=== PATIENT | male | born 1945 | race Caucasian/White ===

== ENCOUNTER 2017-03-02 11:17 | Inpatient (IN) | payer MEDICARE, OTHER ==
[2017-03-02] VITALS (10 sets, daily range): BP systolic 138–166; BP diastolic 51–78; PULSE 60–75; RESP 14–20; O2SAT 94–99
[~2017-03-02] VITALS: Ht 170.2 cm; Wt 119.6 kg
--- NOTE | 2017-03-02 11:31 | ED.REPORT ---
HPI-Dyspnea / Wheezing Date of Service Mar 02, 2017 ED Provider: Dr. Sanders Pt is a 71 year old extremely poor historian with a hx of systolic heart failure , chronic bronchitis, unknown cardiac valve dysfunction presenting to the ED complaining of SOB onset 1 week ago. Associated symptoms include "gurgling". He states that he is usually able to cough and resolve the SOB, but this time he has been unable to. Patient reports feeling he is unable to clear the sputum out of his lungs. Pt had a CT 4 days ago at [facility], but they have not yet gotten results. Nursing Notes Stated Complaint: SOB,HARD TIME WALKING,LOTS OF GURGLING Chief Complaint: Respiratory Distress Nursing Notes Reviewed: Yes Allergies: Coded Allergies: cephalexin (Verified Allergy, Severe, decreased white count, 03/02/17) Contrast Media (Verified Allergy, Intermediate, hives, 03/02/17) shellfish derived (Verified Allergy, Intermediate, hives, 03/02/17) General Time Seen by MD: 11:30 Chief Complaint Shortness of breath Hx Obtained From: Patient, Spouse Arrived By: Walk-in Sudden in Onset?: No Onset Occurred: 1 week ago Symptom Duration: Since onset Severity: Current: No pain currently Severity: Maximum: No pain Recent Healthcare: No recent doctor visit, No recent hospitalization Similar Sx Previous: Yes Past Medical History Past Medical History Notes: CT from [facility] 4 days ago IMPRESSION: 1. Findings consistent with airway disease/bronchitis, rachael notable in the left lower lobe with some mucoid impaction. Left basilar hypoinflation with probable atelectasis. Can not exclude small left basilar infiltrate. Mild lingular atelectasis or scarring. 2. No suspicious pulmonary nodule or pathologic adenopathy. 3. Stable mildly prominent proximal descending aorta 3.2 cm in diameter. Dystrophic calcifications of aortic valve. Past Medical History 1. Pseudomonas aeruginosa tracheobronchitis 2. Chronic bronchitis/possible COPD 3. GERD 4. Obesity 5. Obstructive sleep apnea 6. Hyperlipidemia 7. Rheumatoid arthritis 8. Osteoarthritis 9. Benign prostatic hypertrophy 10. Chronic kidney disease stage G3b/A3, moderately decreased glomerular filtration rate between 30-44 mL/min/1.73 square meter and albuminuria creatinine ratio greater than 300 mg/g 11. History of systolic CHF 12. HTN 13. Heart valve disease 14. Methicillin resistant Staphylococcus aureus colonization Ambulatory Status Independent Review of Systems Respiratory: Reports: Shortness of breath Cardiovascular: Denies: Chest pain Complete sys rev & neg: except as marked. GI: Denies: Vomiting Physical Exam Initial Vital Signs Vital Signs (First) Date Time Temp Pulse Resp B/P Pulse Ox O2 Delivery O2 Flow Rate FiO2 03/02/17 11:29 36.6 66 17 138/75 95 Room Air Initial VS: Reviewed Head / Eyes: Atraumatic, Normocephalic, PERRL ENT: Mucous membranes moist, Conjunctiva normal, No scleral icterus Abdomen / GI: Soft, Non-tender Neurologic: Alert, Oriented, Nonfocal Psychiatric: Mood/affect normal, Behavior normal, Normal thought content General/Constitutional: Awake, Alert, Well appearing Neck: No JVD Respiratory / Chest: Atraumatic Wheezing / Retractions: Positive: Wheezing expiratory Rales / Rhonchi: Positive: Rhonchi diffuse (Coarse) Cardiovascular: Heart rate NL, Regular rhythm, Heart sounds NL, Peripheral circulation NL Lower Extremity / Pelvis / MS: Atraumatic, Neurologic intact, Vascular intact +1 LE edema Skin: Atraumatic, Color NL, No rash, Warm, Dry, Intact Interpretation & Diagnostics Lab Results Interpretation Result Diagram: 03/02/17 1130 03/02/17 1130 Test 03/02/17 11:30 03/02/17 13:51 White Blood Count 13.8th/mm3 (3.8-10.1) Red Blood Count 4.52mil/mm3 (4.40-5.80) Hemoglobin 14.0g/dL (13.8-17.2) Hematocrit 43.2% (41.0-50.0) Mean Corpuscular Volume 95.6fL (81-100) Mean Corpuscular Hemoglobin 31.0pg (27.0-35.0) Mean Corpuscular Hemoglobin Concent 32.4% (32.0-37.0) Red Cell Distribution Width 15.5% (12.3-15.4) Platelet Count 116bil/L (150-400) Neutrophils (%) (Auto) 82.5% (40-74) Lymphocytes (%) (Auto) 10.5% (14-46) Monocytes (%) (Auto) 4.9% (4-12) Eosinophils (%) (Auto) 0.7% (0-5) Basophils (%) (Auto) 0.1% (0-3) Prothrombin Time 10.1sec (8.1-12.5) Prothromb Time International Ratio 0.95ratio Sodium Level 141mEq/L (134-144) Potassium Level 4.5mEq/L (3.5-5.2) Chloride Level 104mEq/L (97-108) Carbon Dioxide Level 23mmol/L (18-29) Blood Urea Nitrogen 45mg/dL (8-27) Creatinine 1.23mg/dL (0.76-1.27) Estimat Glomerular Filtration Rate 61mL/min (>59) Glucose Level 163mg/dL (60-99) Lactic Acid Level 1.6mmol/L (0.4-2.0) Calcium Level 9.5mg/dL (8.5-10.1) Magnesium Level 1.8mg/dL (1.6-2.6) Total Bilirubin 0.6mg/dL (0.0-1.2) Aspartate Amino Transf (AST/SGOT) 21U/L (0-50) Alanine Aminotransferase (ALT/SGPT) 21U/L (0-44) Alkaline Phosphatase 88U/L (25-160) Troponin T 0.010ug/L (0.0-0.011) Pro-B-Type Natriuretic Peptide 244.7pg/mL (0-376) Total Protein 5.9g/dL (6.4-8.4) Albumin 3.6g/dL (3.4-5.0) Procalcitonin 0.06ng/mL (0.00-0.08) Hold Joseph Top Tube Received (Received) Hold Urine Received (Received) ECG Interpretation ECG Interpretation: LAFB and RBBB. Left ventricular hypertrophy. Time: 11:32 Interpreted by: ED physician Normal ECG Interpretation: Normal rate (65), Normal sinus rhythm X-Ray Chest Interpretation Chest Xray Interpretation: IMPRESSION: Moderate atypical pneumonia. Dictated by: Stephanie Beavers M.D. on 03/02/2017 at 12:58 View: AP & lat Interpretation / Wet Read by: Interpret - Radiologist Re-Eval/Medical Decision Med Decision/Clinical Course Suspect either chronic bronchitis exacerbation or pneumonia, patient received IV steroids and a total of 2 albuterol nebulizers and 2 DuoNeb's in the ER with little relief. His vital signs are stable overall however given his leukocytosis, presence of atypical pneumonia on x-ray and minimal clinical improvement and the patient was outside of the area suspect that he will need hospitalization for aggressive nebulizer therapy, IV antibiotics and steroids for significant clinical improvement. We will plan to admit. Re-Evaluation/Progress #1: Time of Eval: 12:33 Patient Status: Condition improved Re-Evaluation/Progress Note: Discussed plan for x ray. Pt understands and agrees. Re-Evaluation/Progress #2: Time of Eval: 13:11 Patient Status: Condition improved Re-Evaluation/Progress Note: Discussed plan for admission. Pt understands and agrees with plan. Consultation : Referral / Consult Name: Gaetano Gordon MD Consulted With: Hospitalist Call Returned at: 14:03 Clinical Courier: Will see patient, Agrees with plan, Accepts admit Counseled Regarding: Diagnosis, Lab results, Need for follow-up, When/why to return to ED Discharge & Departure Impression: Primary Impression: Pneumonia Disposition: ADMITTED TO HOSPITAL Discharge Condition All VS Reviewed: Yes Condition: Improved Leilani Attestation Portions of this note were transcribed by Janice Mullins. I, Dr. Sanders personally performed the history, physical exam and medical decision-making; I reviewed and confirmed the accuracy of the information in the transcribed note. Signed by: Leilani Johnson, 03/02/2017 at 1408. Isiah Sanders DO Mar 02, 2017 11:31 JANICE MULLINS Mar 02, 2017 11:44
[2017-03-02] MEDS ORDERED: 0.9% Sodium Chloride 1,000 ML IV ONE (11:43)
[2017-03-02] MEDS ORDERED: MethylprednisoLONE Sodium Succinate 62.5 mg/mL 2 mL Inj IVPUSH ONE (11:45)
[2017-03-02] MEDS ORDERED: Albuterol 2.5 mg/3 mL Inhalation Solution NEB ONE (11:45)
[2017-03-02 12:04] LABS: BASOPHILS % (AUTO) 0.1 % (0-3); EOSINOPHILS % (AUTO) 0.7 % (0-5); MONOCYTES % (AUTO) 4.9 % (4-12); Mean Corpuscular Volume 95.6 fL (81-100); NEUTROPHILS % (AUTO) 82.5 % (40-74); Platelet Count 116 bil/L (150-400)
[2017-03-02 12:24] LABS: TROPONIN T 0.01 ug/L (0.0-0.011)
[2017-03-02 12:35] LABS: Magnesium 1.8 mg/dL (1.6-2.6)
[2017-03-02 12:42] LABS: INR 0.95 ratio
--- NOTE | 2017-03-02 12:59 | DRSVH ---
PROCEDURE: X-RAY CHEST, TWO VIEWS ([id number]) INDICATIONS: Shortness of breath. History of pneumonia. TECHNIQUE: 2 views of the chest were acquired. COMPARISON: None. FINDINGS: Surgical changes and devices: None. Lungs and pleura: No pleural effusions or pneumothorax. Moderate interstitial pulmonary opacity is p resent. Mediastinum: Mediastinal contours are normal. Heart size is normal. Bones and chest wall: No suspicious bony abnormalities. Soft tissues appear unremarkable. IMPRESSION: Moderate atypical pneumonia. Dictated by: Stephanie Beavers M.D. on 03/02/2017 at 12:58 Approved by: Stephanie Beavers M.D. on 03/02/2017 at 12:58
[2017-03-02] MEDS ORDERED: Albuterol-Ipratropium 3 mL Inhalation Solution NEB ONE (13:15)
[2017-03-02] MEDS ORDERED: levoFLOXacin Inj 750 MG in IV Premix 1 EACH IV ONE (13:25)
[2017-03-02] MEDS ORDERED: Ondansetron 2 mg/mL 2 mL Inj IVPUSH PRN (14:50)
[2017-03-02] MEDS ORDERED: Polyethylene Glycol (PEG) 17 Gm Powder PO PRN (14:50)
[2017-03-02] MEDS ORDERED: Alum-Mag Hydrox-Simeth 30 mL Suspension PO PRN (14:50)
[2017-03-02 15:16] LABS: APPEARANCE,URINE CLEAR (CLEAR,HAZY); COLOR,URINE YELLOW (YELLOW); OCCULT BLOOD,URINE NEGATIVE (NEGATIVE); UROBILINOGEN,URINE NORMAL (NORMAL)
[2017-03-02] MEDS ORDERED: Furosemide 10 mg/mL 4 mL Inj IVPUSH ONE (16:45)
[2017-03-02] MEDS: Albuterol-Ipratropium 3 mL Inhalation Solution NEB SCH ×2 (16:50→19:52)
[2017-03-02] MEDS ORDERED: PRE10 PO (18:02)
[2017-03-02] MEDS ORDERED: DOXA4TAB3 PO (18:02)
[2017-03-02] MEDS ORDERED: COLC0.6T55 PO (18:02)
[2017-03-02] MEDS ORDERED: TRAZ-115 PO (18:02)
[2017-03-02] MEDS ORDERED: ALLO300T2 PO (18:02)
[2017-03-02] MEDS ORDERED: FURO40TA4 PO (18:02)
[2017-03-02] MEDS ORDERED: SYMINH INHALATION (18:02)
[2017-03-02] MEDS ORDERED: TIOT18CA3 INHALATION (18:02)
[2017-03-02] MEDS ORDERED: OMEP20CA11 PO (18:02)
[2017-03-02] MEDS ORDERED: GUAI600T86 PO (18:02)
[2017-03-02] MEDS ORDERED: OXYC5TAB72 PO (18:02)
[2017-03-02] MEDS ORDERED: BACL10TA PO (18:02)
[2017-03-02] MEDS ORDERED: ALBU8.5H2 INHALATION (18:02)
[2017-03-02] MEDS ORDERED: ATOR40TA69 PO (18:02)
[2017-03-02] MEDS ORDERED: CARV6.252 PO (18:02)
[2017-03-02] MEDS ORDERED: NITR0.4T6 SL (18:02)
[2017-03-02] MEDS ORDERED: Furosemide 10 mg/mL 4 mL Inj IVPUSH SCH (20:30)
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
[2017-03-03] VITALS (11 sets, daily range): BP systolic 112–146; BP diastolic 70–79; PULSE 68–91; RESP 16–20; O2SAT 94–95
[2017-03-03] MEDS ORDERED: Albuterol 2.5 mg/3 mL Inhalation Solution NEB PRN (00:30)
[2017-03-03] MEDS ORDERED: guaiFENesin 600 mg ER12 Tablet PO PRN (00:30)
[2017-03-03] MEDS: Albuterol-Ipratropium 3 mL Inhalation Solution NEB SCH ×4 (04:50→20:06)
[2017-03-03] MEDS: Pantoprazole 40 mg ER24 Tablet PO SCH (06:11)
[2017-03-03 06:38] LABS: BASOPHILS % (AUTO) 0.1 % (0-3); EOSINOPHILS % (AUTO) 0.2 % (0-5); MONOCYTES % (AUTO) 1.6 % (4-12); Mean Corpuscular Hemoglobin 31.4 pg (27.0-35.0); Mean Corpuscular Volume 92.7 fL (81-100); NEUTROPHILS % (AUTO) 92.5 % (40-74); Platelet Count 119 bil/L (150-400)
[2017-03-03 07:05] LABS: Magnesium 1.8 mg/dL (1.6-2.6)
[2017-03-03] MEDS ORDERED: Furosemide 10 mg/mL 4 mL Inj IVPUSH SCH (08:30)
[2017-03-03] MEDS: predniSONE 10 mg Tablet PO SCH (08:34)
[2017-03-03] MEDS: levoFLOXacin Inj 750 MG in IV Premix 1 EACH IV SCH (08:37)
[2017-03-03] MEDS ORDERED: 0.9% Sodium Chloride 250 ML ONE (08:38)
[2017-03-03] MEDS: Fluticasone-Salmeterol 500-50 Inhaler INHALATION SCH ×2 (08:46→21:30)
[2017-03-03] MEDS: Tiotropium 18mcg/Cap 5 Capsule Inhaler Kit INHALATION SCH (08:46)
--- NOTE | 2017-03-03 10:23 | PCM.PNMED ---
Subjective Date of Service Mar 03, 2017 Subjective pt felt better but still has productive cough, was on CPAP, tolerated well, denied SOB this AM had lasix 40mg iv yesterday net 1.9liters negative refused evening dose of lasix await TTE Exam Vital Signs Vital Sign - Last Date Time Temp Pulse Resp B/P Pulse Ox O2 Delivery O2 Flow Rate FiO2 03/03/17 08:42 84 03/03/17 08:31 36.9 18 112/75 95 Room Air Intake and Output 03/02/17 03/02/17 03/03/17 Cumulative From/Thru 15:00 23:00 07:00 03/02/17 11:29 - 03/03/17 06:11 Intake Total 1000 ml 480 ml 400 ml 1880 ml Output Total 1050 ml 2300 ml 3350 ml Balance 1000 ml -570 ml -1900 ml -1470 ml Intake Oral 480 ml 400 ml 880 ml IV Total 1000 ml 0 ml 1000 ml Output Urine Total 1050 ml 2300 ml 3350 ml Exam NAD, comfortably laying down on the bed no JVD, MMM, no LAD RRR, nl s1, s2 no mrg coarse BS throughout, rhonchi, no w,c S,ND,NT,normoactive BS+ warm, trace edema, pulses 2/2 IVs and Medications Medications Reviewed: Medications were reviewed in detail Lab and Diagnostics Result Diagram: 03/03/17 0600 03/03/17 0600 Microbiology Blood cultures and nasal swab for pathogens is pending X-Rays, CTs and MRIs PROCEDURE: X-RAY CHEST, TWO VIEWS ([id number]) INDICATIONS: Shortness of breath. History of pneumonia. TECHNIQUE: 2 views of the chest were acquired. COMPARISON: None. FINDINGS: Surgical changes and devices: None. Lungs and pleura: No pleural effusions or pneumothorax. Moderate interstitial pulmonary opacity is present. Mediastinum: Mediastinal contours are normal. Heart size is normal. Bones and chest wall: No suspicious bony abnormalities. Soft tissues appear unremarkable. IMPRESSION: Moderate atypical pneumonia. Dictated by: Stephanie Beavers M.D. on 03/02/2017 at 12:58 Approved by: Stephanie Beavers M.D. on 03/02/2017 at 12:58 Assessment & Plan Patient is a pleasant 71-year-old obese white male with history of sinus infection chronic bronchitis and "leaky valves" who has been having "breathing problems" over the last few weeks. He lives in [place], [place] and was seen at the Hospital clinic there. Patient had a CT scan of the chest which apparently he does not know the results of. He was visiting the area with his and he began having a hard time breathing and his brought him to [facility] emergency room where he was evaluated by Dr. Eagle Saucedo. Patient had a chest x-ray which showed moderate atypical pneumonia. His EKG showed left anterior fascicular block and right bundle branch block and left ventricular hypertrophy. And also showed a normal rate of 65 and normal sinus rhythm. Patient's white blood cell count was found to be 13.8. Due to patient's diffuse bilateral interstitial infiltrate consistent with pneumonia per the radiologist's interpretation along with leukocytosis, the patient was admitted to the hospitalist service for further evaluation and treatment. # dyspnea, POA, CXR showed bilateral interstitial pulmonary infiltrates with leukocytosis consistent with pneumonia. viral PCR showed rhino/larry virus+, probable CHF as well.sputum culture, MRSA swab were negative. - pt is clinically improving with diuretics, abx, oxygenating well w/o advanced airway - s/p lasix 40 mg IV once yesterday with brisk urine output. will continue daily 40iv for now, likely to decrease to 40po tomorrow, - s/p Solu-medrol 125 mg IV ED, prednisone taper continued 10mg daily, will continue slow taper - awaits TTE -due to concern for superimposed bacterial PNA, will continue with Levaquin 750 mg qd for now, # History of systolic congestive heart failure improved on carvedilol. Patient also states he has a history of "a leaky valve". - He reports that he was given a 5 day course of furosemide and has not been on it. However he does not remember how long he has been off of it. - I suspect patient has acute on chronic systolic congestive heart failure - TTE, lasix as above, continue coreg home dose, # Obstructive sleep apnea with obesity - continue home CPAP # Chronic kidney disease stage III with history of moderately decreased glomerular filtration rate between 30 and 44 mL/m per 1.73 m and albuminuria with a creatinine ratio greater than 300 mg/g - Patient's Renal condition may be exacerbating his congestive heart failure - We will closely follow patient's daily electrolytes and BUN and creatinine. # History of MRSA colonization - We will check nasal swab for MRSA # Gastroesophageal reflux disease - We will continue proton pump inhibitor # Rheumatoid arthritis and osteoarthritis - We will continue home medications - Supportive care # Hyperlipidemia - We will continue home medications Disposition: likely 1-2more days, home dvt ppx: LMWH diet: cardiac GI Prophylaxis: H2 buster VTE Prophylaxis: Sub-Q Enoxaparin Resuscitation Status: CPR: Attempt Resuscitation Time spent 35min Adalberto Ramos MD Mar 03, 2017 10:23
--- NOTE | 2017-03-03 10:52 | DRSVH ---
[facility] [address] [place] [address] Echocardiogram Report Name: PATRICK FLANAGAN Date: 03/03/2017 Height: 67 in Hospital Exam Location: [facility] Weight: 264 lb Gender: Male BSA: 2.3 m2 : 1945 Age: 71 yrs BP: 146/74 mmHg Reason For Study: CHF Ordering Physician: Performed By: Leonardo Mason Interpretation Summary The ejection fraction is estimated to be 55-60%. There is mild aortic regurgitation. There is trace mitral regurgitation. Procedure: A two-dimensional transthoracic echocardiogram with color flow and Doppler was performed. The study quality was technically adequate. There is no prior echocardiogram noted for this patient. The patient was in normal sinus rhythm during the exam. Left Ventricle: The left ventricle is normal in size. Left ventricular wall thickness is mildly increased. The ejection fraction is estimated to be 55- 60%. There are no focal wall motion abnormalities. Right Ventricle: The right ventricle is normal in size and function. Atria: Both atria are normal in size. The interatrial septum is intact with no evidence for an atrial septal defect. Mitral Valve: The mitral valve is normal in structure and function. There is mild mitral annular calcification. There is trace mitral regurgitation. Aortic Valve: The aortic valve is mildly calcified. The aortic valve opens well. There is mild aortic regurgitation. Tricuspid Valve: The tricuspid valve is normal in structure and function. No tricuspid regurgitation. Pulmonary artery pressures cannot be estimated because of the lack of a measurable TR jet velocity. Pulmonic Valve: The pulmonic valve is not well seen, but is grossly normal. There is no pulmonic valvular regurgitation. Great Vessels: The aortic root is normal size. The ascending aorta is mildly enlarged. The pulmonary artery is normal size. The IVC is of normal diameter and collapses greater than 50% with a sniff. This suggests a low right atrial pressure of 3 mm Hg. Pericardium/ Pleura There is no pericardial effusion. There is no pleural effusion. MMode/2D Measurements & Calculations LVIDd: 5.5 cm LA dimension: 5.2 cm RA long axis LVOT diam: 2.5 cm LVIDs: 3.3 cm Ao root diam FS: 39.1 % LA A2 area: 23.1 cm RA area EPSS: 0.74 cm LA A4 area: 20.6 cm Aortic Jxn: 2.7 cm IVSd: 1.3 cm LA length (vol) : 18.8 cm asc Aorta Diam LVPWd: 1.3 cm RA vol LA vol: 69.3 ml : 57.6 ml Ao Arch Diam (Prox LA vol index RA Trans): 2.9 cm : 25.3 mm2 IVC diam: 1.5 cm LV lackey. diameter/BSA LV sys. diameter/BSA (cm/m^2): 2.4 (cm/m^2): 1.5 Doppler Measurements & Calculations Ao V2 max MV E max osman MV E/A: 0.55 PA V2 max : 261.2 cm/sec : 43.0 cm/sec Med Peak E' Osman : 103.1 cm/sec Ao max P.3 mmHg MV A max osman PA mean PG Ao mean P.8 mmH.9 cm/sec E/E' med: 12.5 LVOT Max Osman Lat Peak E' Osman PA Accel Time : 121.4 cm/sec : 0.10 sec E/E' lat: 7.4 AGUSTINA(I,D): 2.7 cm E/e' average sev ratio: 0.56 AI P1/2t: 550.5 msec Pulm A Revs Dur AI dec slope : 216.1 cm/s2c MV A dur : 0.14 sec MV dec time: 0.09 secAo V2 mean LV V1 max PG PA V2 mean : 196.1 cm/sec : 68.3 cm/sec Ao V2 VTI: 43.5 cm LV V1 VTI PA pr(Accel) : 24.4 cm : 39.1 mmHg AGUSTINA(V,D): 2.2 cm2 AGUSTINA indexed to BSA Bernardino Jauregui - MV A (cm^2/m^2): 1.2 Dur: -0.04 msec Electronically signed by: Liban Larsen on Reading Physician:03/03/2017 10:51 AM
[2017-03-04] VITALS (11 sets, daily range): BP systolic 128–146; BP diastolic 65–80; PULSE 64–77; RESP 16–24; O2SAT 93–96
[2017-03-04] MEDS: Albuterol-Ipratropium 3 mL Inhalation Solution NEB SCH ×4 (04:50→22:09)
[2017-03-04] MEDS: Pantoprazole 40 mg ER24 Tablet PO SCH (06:18)
[2017-03-04 07:11] LABS: BASOPHILS % (AUTO) 0.1 % (0-3); EOSINOPHILS % (AUTO) 0.2 % (0-5); MONOCYTES % (AUTO) 5.5 % (4-12); Mean Corpuscular Hemoglobin 31.2 pg (27.0-35.0); Mean Corpuscular Volume 93.2 fL (81-100); NEUTROPHILS % (AUTO) 80.2 % (40-74); Platelet Count 122 bil/L (150-400)
[2017-03-04 07:28] LABS: Magnesium 1.9 mg/dL (1.6-2.6)
[2017-03-04] MEDS: Fluticasone-Salmeterol 500-50 Inhaler INHALATION SCH ×2 (08:01→21:51)
[2017-03-04] MEDS: Tiotropium 18mcg/Cap 5 Capsule Inhaler Kit INHALATION SCH (08:01)
[2017-03-04] MEDS: levoFLOXacin Inj 750 MG in IV Premix 1 EACH IV SCH (08:03)
[2017-03-04] MEDS: predniSONE 10 mg Tablet PO SCH (08:07)
--- NOTE | 2017-03-04 10:08 | PCM.PNMED ---
Subjective Date of Service Mar 04, 2017 Subjective pt feels lot better today, still very productive, thick green sputum, denied SOB, neb tx helpful for breathing Exam Vital Signs Vital Sign - Last Date Time Temp Pulse Resp B/P Pulse Ox O2 Delivery O2 Flow Rate FiO2 03/04/17 08:12 72 22 128/72 93 Room Air 03/04/17 06:33 36.5 Intake and Output 03/03/17 03/03/17 03/04/17 Cumulative From/Thru 15:00 23:00 07:00 03/02/17 11:29 - 03/04/17 06:01 Intake Total 400 ml 2280 ml Output Total 850 ml 1050 ml 1200 ml 6450 ml Balance -850 ml -1050 ml -800 ml -4170 ml Intake Oral 400 ml 1280 ml IV Total 1000 ml Output Urine Total 850 ml 1050 ml 1200 ml 6450 ml # Bowel Movements 2 2 Exam NAD, comfortably laying down on the bed no JVD, MMM, no LAD RRR, nl s1, s2 no mrg coarse BS throughout, rhonchi, no w,c, improved from yesterday S,ND,NT,normoactive BS+ warm, trace edema, pulses 2/2 IVs and Medications Medications Reviewed: Medications were reviewed in detail Lab and Diagnostics Result Diagram: 03/04/1761903/04/17619 Microbiology Blood cultures and nasal swab for pathogens is pending X-Rays, CTs and MRIs PROCEDURE: X-RAY CHEST, TWO VIEWS ([id number]) INDICATIONS: Shortness of breath. History of pneumonia. TECHNIQUE: 2 views of the chest were acquired. COMPARISON: None. FINDINGS: Surgical changes and devices: None. Lungs and pleura: No pleural effusions or pneumothorax. Moderate interstitial pulmonary opacity is present. Mediastinum: Mediastinal contours are normal. Heart size is normal. Bones and chest wall: No suspicious bony abnormalities. Soft tissues appear unremarkable. IMPRESSION: Moderate atypical pneumonia. Dictated by: Stephanie Beavers M.D. on 03/02/2017 at 12:58 Approved by: Stephanie Beavers M.D. on 03/02/2017 at 12:58 Assessment & Plan Patient is a pleasant 71-year-old obese white male with history of sinus infection chronic bronchitis and "leaky valves" who has been having "breathing problems" over the last few weeks. He lives in [place], [place] and was seen at the Hospital clinic there. Patient had a CT scan of the chest which apparently he does not know the results of. He was visiting the area with his and he began having a hard time breathing and his brought him to [facility] emergency room where he was evaluated by Dr. Eagle Saucedo. Patient had a chest x-ray which showed moderate atypical pneumonia. His EKG showed left anterior fascicular block and right bundle branch block and left ventricular hypertrophy. And also showed a normal rate of 65 and normal sinus rhythm. Patient's white blood cell count was found to be 13.8. Due to patient's diffuse bilateral interstitial infiltrate consistent with pneumonia per the radiologist's interpretation along with leukocytosis, the patient was admitted to the hospitalist service for further evaluation and treatment. # dyspnea, POA, CXR showed bilateral interstitial pulmonary infiltrates with leukocytosis consistent with pneumonia. viral PCR showed rhino/larry virus+, less likely CHF.Sputum culture, MRSA swab were negative. TTE 03/03 showed normal EF, no significant valvular dz. - pt is clinically improving with diuretics, abx, oxygenating well w/o advanced airway - s/p lasix 40 mg IV once yesterday with brisk urine output. followed by daily 40iv, decrease to 40po today given TTE findings, no strong suspicion of CHF - s/p Solu-medrol 125 mg IV ED, prednisone taper continued 10mg daily, will finish last dose tomorrow. -due to concern for superimposed bacterial PNA, will continue with Levaquin 750 mg qd for now, # History of systolic congestive heart failure improved on carvedilol. Patient also states he has a history of "a leaky valve". TTE 03/03 showed no systolic dysfunction, valvular dz. -lasix as above, continue coreg home dose, # Obstructive sleep apnea with obesity - continue home CPAP # Chronic kidney disease stage III with history of moderately decreased glomerular filtration rate between 30 and 44 mL/m per 1.73 m and albuminuria with a creatinine ratio greater than 300 mg/g - Patient's Renal condition may be exacerbating his congestive heart failure - We will closely follow patient's daily electrolytes and BUN and creatinine. # History of MRSA colonization - We will check nasal swab for MRSA # Gastroesophageal reflux disease - We will continue proton pump inhibitor # Rheumatoid arthritis and osteoarthritis - We will continue home medications - Supportive care # Hyperlipidemia - We will continue home medications Disposition: likely tomorrow home. dvt ppx: LMWH diet: cardiac GI Prophylaxis: H2 buster VTE Prophylaxis: Sub-Q Enoxaparin Resuscitation Status: CPR: Attempt Resuscitation Time spent 35min Adalberto Ramos MD Mar 04, 2017 10:06 Adalberto Ramos MD Mar 04, 2017 10:06
[2017-03-05] VITALS (10 sets, daily range): BP systolic 132–152; BP diastolic 61–74; PULSE 64–77; RESP 18–22; O2SAT 93–97
[2017-03-05] MEDS: Pantoprazole 40 mg ER24 Tablet PO SCH (05:46)
[2017-03-05 06:12] LABS: BASOPHILS % (AUTO) 0.1 % (0-3); EOSINOPHILS % (AUTO) 0.2 % (0-5); MONOCYTES % (AUTO) 8.2 % (4-12); Mean Corpuscular Hemoglobin 30.9 pg (27.0-35.0); Mean Corpuscular Volume 94.7 fL (81-100); NEUTROPHILS % (AUTO) 69.4 % (40-74); Platelet Count 111 bil/L (150-400)
[2017-03-05] MEDS: Albuterol-Ipratropium 3 mL Inhalation Solution NEB SCH ×3 (06:25→20:27)
[2017-03-05 07:00] LABS: Magnesium 1.8 mg/dL (1.6-2.6)
[2017-03-05] MEDS: Fluticasone-Salmeterol 500-50 Inhaler INHALATION SCH ×2 (08:42→20:43)
[2017-03-05] MEDS: predniSONE 10 mg Tablet PO SCH (08:42)
[2017-03-05] MEDS: Tiotropium 18mcg/Cap 5 Capsule Inhaler Kit INHALATION SCH (08:42)
[2017-03-05] MEDS: levoFLOXacin Inj 750 MG in IV Premix 1 EACH IV SCH (08:46)
--- NOTE | 2017-03-05 09:12 | PCM.PNMED ---
Subjective Date of Service Mar 05, 2017 Subjective pt is still not feeling well, mildly tachypneic this morning was on CPAP, therefore unable to cough up sputum much willing to stay until he feels more comfortable, able to walk to the bathroom. still has thick yellowish sputum, intermittent cough i/o still brisk with home dose, net -800 Exam Vital Signs Vital Sign - Last Date Time Temp Pulse Resp B/P Pulse Ox O2 Delivery O2 Flow Rate FiO2 03/05/17 09:02 67 03/05/17 06:25 18 93 Room Air 03/05/17 06:11 36.4 133/74 Intake and Output 03/04/17 03/04/17 03/05/17 Cumulative From/Thru 15:00 23:00 07:00 03/02/17 11:29 - 03/05/17 06:11 Intake Total 1392 ml 400 ml 4072 ml Output Total 1250 ml 1200 ml 8900 ml Balance 142 ml -800 ml -4828 ml Intake Oral 1192 ml 400 ml 2872 ml IV Total 200 ml 1200 ml Output Urine Total 1250 ml 1200 ml 8900 ml # Voids 1 1 # Bowel Movements 1 3 Exam NAD, comfortably laying down on the bed no JVD, MMM, no LAD RRR, nl s1, s2 no mrg coarse BS throughout, rhonchi, no w,c, unchanged from yesterday S,ND,NT,normoactive BS+ warm, trace edema, pulses 2/2 IVs and Medications Medications Reviewed: Medications were reviewed in detail Lab and Diagnostics Result Diagram: 03/05/17 0536 03/05/17 0536 Microbiology Blood cultures and nasal swab for pathogens is pending X-Rays, CTs and MRIs PROCEDURE: X-RAY CHEST, TWO VIEWS ([id number]) INDICATIONS: Shortness of breath. History of pneumonia. TECHNIQUE: 2 views of the chest were acquired. COMPARISON: None. FINDINGS: Surgical changes and devices: None. Lungs and pleura: No pleural effusions or pneumothorax. Moderate interstitial pulmonary opacity is present. Mediastinum: Mediastinal contours are normal. Heart size is normal. Bones and chest wall: No suspicious bony abnormalities. Soft tissues appear unremarkable. IMPRESSION: Moderate atypical pneumonia. Dictated by: Stephanie Beavers M.D. on 03/02/2017 at 12:58 Approved by: Stephanie Beavers M.D. on 03/02/2017 at 12:58 Assessment & Plan Patient is a pleasant 71-year-old obese white male with history of sinus infection chronic bronchitis and "leaky valves" who has been having "breathing problems" over the last few weeks. He lives in [place], [place] and was seen at the Hospital clinic there. Patient had a CT scan of the chest which apparently he does not know the results of. He was visiting the area with his and he began having a hard time breathing and his brought him to [facility] emergency room where he was evaluated by Dr. Eagle Saucedo. Patient had a chest x-ray which showed moderate atypical pneumonia. His EKG showed left anterior fascicular block and right bundle branch block and left ventricular hypertrophy. And also showed a normal rate of 65 and normal sinus rhythm. Patient's white blood cell count was found to be 13.8. Due to patient's diffuse bilateral interstitial infiltrate consistent with pneumonia per the radiologist's interpretation along with leukocytosis, the patient was admitted to the hospitalist service for further evaluation and treatment. acute, chronic # dyspnea, POA, CXR showed bilateral interstitial pulmonary infiltrates with leukocytosis consistent with pneumonia. viral PCR showed rhino/larry virus+, less likely CHF.Sputum culture, MRSA swab were negative. TTE 03/03 showed normal EF, no significant valvular dz. - pt is clinically stable but still very symptomatic, wbc is trending down, remained afebrile -encouraged aggressive expectoration, ordered bedside chest PT - s/p lasix 40 mg IV once yesterday with brisk urine output. followed by daily 40iv, decrease to 40po today given TTE findings, no strong suspicion of CHF - s/p Solu-medrol 125 mg IV ED, finished slow prednisone taper 10mg today last dose. -due to concern for superimposed bacterial PNA, will continue with Levaquin 750 mg qd for now, # History of systolic congestive heart failure improved on carvedilol. Patient also states he has a history of "a leaky valve". TTE 03/03 showed no systolic dysfunction, valvular dz. -lasix as above, continue coreg home dose, # Obstructive sleep apnea with obesity - will hold off on home CPAP to encourage expectoration # LONI in CKD, POA, ATN with aggressive loop diuretics, cr trending down, not at baseline yet -trends cr daily, i/o, daily wt, avoid renal toxin, chronic, stable # History of MRSA colonization - We will check nasal swab for MRSA # Gastroesophageal reflux disease - We will continue proton pump inhibitor # Rheumatoid arthritis and osteoarthritis - We will continue home medications - Supportive care # Hyperlipidemia - We will continue home medications Disposition:slow recovery, likely needs 1-2more days, home dvt ppx: LMWH diet: cardiac GI Prophylaxis: H2 buster VTE Prophylaxis: Sub-Q Enoxaparin Resuscitation Status: CPR: Attempt Resuscitation Time spent 65min Adalberto Ramos MD Mar 05, 2017 09:11
[2017-03-06] VITALS (10 sets, daily range): BP systolic 110–133; BP diastolic 60–71; PULSE 63–86; RESP 18–20; O2SAT 93–96
[2017-03-06] MEDS: Albuterol-Ipratropium 3 mL Inhalation Solution NEB SCH (05:50)
[2017-03-06 06:23] LABS: BASOPHILS % (AUTO) 0.1 % (0-3); EOSINOPHILS % (AUTO) 0.6 % (0-5); MONOCYTES % (AUTO) 9.3 % (4-12); Mean Corpuscular Hemoglobin 31.2 pg (27.0-35.0); Mean Corpuscular Volume 93.8 fL (81-100); Platelet Count 107 bil/L (150-400)
[2017-03-06] MEDS: Pantoprazole 40 mg ER24 Tablet PO SCH (06:48)
[2017-03-06 07:00] LABS: Magnesium 1.8 mg/dL (1.6-2.6)
[2017-03-06] MEDS ORDERED: LEVO750T9 PO (07:42)
[2017-03-06] MEDS: levoFLOXacin Inj 750 MG in IV Premix 1 EACH IV SCH (08:04)
[2017-03-06] MEDS: Fluticasone-Salmeterol 500-50 Inhaler INHALATION SCH ×2 (08:06→20:51)
[2017-03-06] MEDS: Tiotropium 18mcg/Cap 5 Capsule Inhaler Kit INHALATION SCH (08:06)
--- NOTE | 2017-03-06 08:57 | PCM.PNMED ---
Subjective Date of Service Mar 06, 2017 Subjective patient still c/o thick yellowish sputum, same amount, similar thickness, able to walk down the hallway but felt SOB didn't use CPAP so woke up more frequently with chocking sensation. afebrile, HD stable, pt is not comfortable leaving today, expresses his concern given that he is living [place] far from medical facility. Exam Vital Signs Vital Sign - Last Date Time Temp Pulse Resp B/P Pulse Ox O2 Delivery O2 Flow Rate FiO2 03/06/17 06:12 36.6 75 20 115/62 95 Room Air Intake and Output 03/05/17 03/05/17 03/06/17 Cumulative From/Thru 15:00 23:00 07:00 03/02/17 11:29 - 03/06/17 06:23 Intake Total 1710 ml 525 ml 6307 ml Output Total 2600 ml 2000 ml 76181 ml Balance -890 ml -1475 ml -7193 ml Intake Oral 1530 ml 525 ml 4927 ml IV Total 180 ml 1380 ml Output Urine Total 2600 ml 2000 ml 96657 ml # Voids 1 # Bowel Movements 1 1 5 Exam NAD, comfortably laying down on the bed no JVD, MMM, no LAD RRR, nl s1, s2 no mrg coarse BS throughout, rhonchi, no w,c, unchanged from yesterday S,ND,NT,normoactive BS+ warm, trace edema, pulses 2/2 IVs and Medications Medications Reviewed: Medications were reviewed in detail Lab and Diagnostics Result Diagram: 03/06/17 0608 03/06/17 0608 Microbiology Blood cultures and nasal swab for pathogens is pending X-Rays, CTs and MRIs PROCEDURE: X-RAY CHEST, TWO VIEWS ([id number]) INDICATIONS: Shortness of breath. History of pneumonia. TECHNIQUE: 2 views of the chest were acquired. COMPARISON: None. FINDINGS: Surgical changes and devices: None. Lungs and pleura: No pleural effusions or pneumothorax. Moderate interstitial pulmonary opacity is present. Mediastinum: Mediastinal contours are normal. Heart size is normal. Bones and chest wall: No suspicious bony abnormalities. Soft tissues appear unremarkable. IMPRESSION: Moderate atypical pneumonia. Dictated by: Stephanie Beavers M.D. on 03/02/2017 at 12:58 Approved by: Stephanie Beavers M.D. on 03/02/2017 at 12:58 Assessment & Plan Patient is a pleasant 71-year-old obese white male with history of sinus infection chronic bronchitis and "leaky valves" who has been having "breathing problems" over the last few weeks. He lives in [place], [place] and was seen at the Hospital clinic there. Patient had a CT scan of the chest which apparently he does not know the results of. He was visiting the area with his and he began having a hard time breathing and his brought him to [facility] emergency room where he was evaluated by Dr. Eagle Saucedo. Patient had a chest x-ray which showed moderate atypical pneumonia. His EKG showed left anterior fascicular block and right bundle branch block and left ventricular hypertrophy. And also showed a normal rate of 65 and normal sinus rhythm. Patient's white blood cell count was found to be 13.8. Due to patient's diffuse bilateral interstitial infiltrate consistent with pneumonia per the radiologist's interpretation along with leukocytosis, the patient was admitted to the hospitalist service for further evaluation and treatment. acute, chronic # dyspnea, POA, CXR showed bilateral interstitial pulmonary infiltrates with leukocytosis consistent with pneumonia. viral PCR showed rhino/larry virus+, less likely CHF.Sputum culture, MRSA swab were negative. TTE 03/03 showed normal EF, no significant valvular dz. - pt is clinically stable but still very symptomatic, wbc is trending down, remained afebrile -encouraged aggressive expectoration, ordered bedside chest PT, will add Acapella today - s/p lasix 40 mg IV once yesterday with brisk urine output. followed by daily 40iv, decrease to 40po today given TTE findings, no strong suspicion of CHF - s/p Solu-medrol 125 mg IV ED, finished slow prednisone taper 10mg today last dose. -due to concern for superimposed bacterial PNA, will continue with Levaquin 750 mg qd for now, # History of systolic congestive heart failure improved on carvedilol. Patient also states he has a history of "a leaky valve". TTE 03/03 showed no systolic dysfunction, valvular dz. -lasix as above, continue coreg home dose, # Obstructive sleep apnea with obesity - will hold off on home CPAP to encourage expectoration # LONI in CKD, POA, ATN with aggressive loop diuretics, cr trending down, not at baseline yet -trends cr daily, i/o, daily wt, avoid renal toxin, chronic, stable # History of MRSA colonization - We will check nasal swab for MRSA # Gastroesophageal reflux disease - We will continue proton pump inhibitor # Rheumatoid arthritis and osteoarthritis - We will continue home medications - Supportive care # Hyperlipidemia - We will continue home medications Disposition:slow recovery, likely needs 1-2more days, home dvt ppx: LMWH diet: cardiac GI Prophylaxis: H2 buster VTE Prophylaxis: Sub-Q Enoxaparin Resuscitation Status: CPR: Attempt Resuscitation Time spent 35min Adalberto Ramos MD Mar 06, 2017 08:57
--- NOTE | 2017-03-06 11:32 | DRSVH ---
PROCEDURE: X-RAY CHEST ONE VIEW, PORTABLE ([id number]) INDICATIONS: ACUTE CHEST PAIN TECHNIQUE: One view of the chest was acquired. COMPARISON: [facility], CR, XR CHEST 2VW, 03/02/2017, 12:38. FINDINGS: Surgical changes and devices: None. Lungs and pleura: No pleural effusions or pneumothorax. There is an improved appearance of interstit ial pulmonary opacities. Mediastinum: Mediastinal contours appear normal. Heart size is normal. Bones and chest wall: No suspicious bony lesions. Overlying soft tissues appear unremarkable. IMPRESSION: Improved appearance of interstitial pulmonary opacities. Dictated by: Sheryl Nguyen M.D. on 03/06/2017 at 11:30 Approved by: Sheryl Nguyen M.D. on 03/06/2017 at 11:31
[2017-03-07 01:56] VITALS: BP 127/66; PULSE 75; RESP 16; O2SAT 92
[2017-03-07 05:49] VITALS: PULSE 74
[2017-03-07 06:00] VITALS: BP 115/74; PULSE 76; RESP 16; O2SAT 95
[2017-03-07 06:39] LABS: BASOPHILS % (AUTO) 0.2 % (0-3); EOSINOPHILS % (AUTO) 1.5 % (0-5); MONOCYTES % (AUTO) 9.5 % (4-12); Mean Corpuscular Hemoglobin 31.5 pg (27.0-35.0); Mean Corpuscular Volume 94.6 fL (81-100); NEUTROPHILS % (AUTO) 58.6 % (40-74); Platelet Count 107 bil/L (150-400)
[2017-03-07] MEDS: Pantoprazole 40 mg ER24 Tablet PO SCH (06:48)
[2017-03-07 07:01] LABS: Magnesium 1.8 mg/dL (1.6-2.6)
[2017-03-07 07:41] VITALS: PULSE 69
[2017-03-07] MEDS ORDERED: 0.9% Sodium Chloride 100 ML ONE (07:55)
[2017-03-07] MEDS: Fluticasone-Salmeterol 500-50 Inhaler INHALATION SCH (08:10)
[2017-03-07] MEDS: Tiotropium 18mcg/Cap 5 Capsule Inhaler Kit INHALATION SCH (08:10)
[2017-03-07] MEDS: levoFLOXacin Inj 750 MG in IV Premix 1 EACH IV SCH (08:11)
[2017-03-07 08:20] VITALS: BP 158/78; PULSE 66; RESP 20; O2SAT 93
--- NOTE | 2017-03-07 09:38 | PCM.DIMED ---
Discharge Instructions Date of Service Mar 07, 2017 Dates of Hospitalization Mar 02, 2017 at 14:38 Discharge Diagnosis Discharge Diagnosis viral pneumonia superimposed bacterial pneumonia COPD exacerbation Medication Instructions Please continue levofloxacin as directed Please use all of inhalers as directed, use albuterol inhalers every 2hours as needed if you feel shortness of breath Please hold lasix given your worsened kidney function, labs should be repeated in one week by your pcp. Diet No restrictions Activity No restrictions Call your provider Shortness of breath Patient Instructions You were hospitalized with difficulty of breathing, cough, sputum, found to have virus pneumonia. Your symptoms were better with antibiotics, steroid, frequent nebulizing treatment. Please continue to make an effort to bring up your sputum, keep using nebulizer treatment, continue antibiotics. Follow-up plan Please follow up with your primary doctor Ly Morataya at [facility] [place]. Follow-up with PCP in: 1 week Adalberto Ramos MD Mar 07, 2017 09:33
--- NOTE | 2017-03-07 12:55 | PCM.DC.MED ---
Discharge Summary Date of Service Mar 07, 2017 Dates of Hospitalization Date of Hospital Admission Mar 02, 2017 at 14:38 Date of Discharge: Mar 07, 2017 Providers: Admitting Physician: Gaetano Gordon MD Primary Care Physician: Laura Attending Physician: Gaetano Gordon MD Diagnosis at Time of Discharge Diagnosis at Time of Discharge Acute viral pneumonia superimposed bacterial pneumonia COPD exacerbation LONI on CKD chronic # History of MRSA colonization, # Gastroesophageal reflux disease, # Rheumatoid arthritis and osteoarthritis, # Hyperlipidemia Procedures XRay, CTs & MRIs PROCEDURE: X-RAY CHEST ONE VIEW, PORTABLE ([id number]) INDICATIONS: ACUTE CHEST PAIN TECHNIQUE: One view of the chest was acquired. COMPARISON: [facility], CR, XR CHEST 2VW, 03/02/2017, 12:38. FINDINGS: Surgical changes and devices: None. Lungs and pleura: No pleural effusions or pneumothorax. There is an improved appearance of interstitial pulmonary opacities. Mediastinum: Mediastinal contours appear normal. Heart size is normal. Bones and chest wall: No suspicious bony lesions. Overlying soft tissues appear unremarkable. IMPRESSION: Improved appearance of interstitial pulmonary opacities. Dictated by: Sheryl Nguyen M.D. on 03/06/2017 at 11:30 Approved by: Sheryl Nguyen M.D. on 03/06/2017 at 11:31 PROCEDURE: X-RAY CHEST, TWO VIEWS ([id number]) INDICATIONS: Shortness of breath. History of pneumonia. TECHNIQUE: 2 views of the chest were acquired. COMPARISON: None. FINDINGS: Surgical changes and devices: None. Lungs and pleura: No pleural effusions or pneumothorax. Moderate interstitial pulmonary opacity is present. Mediastinum: Mediastinal contours are normal. Heart size is normal. Bones and chest wall: No suspicious bony abnormalities. Soft tissues appear unremarkable. IMPRESSION: Moderate atypical pneumonia. Dictated by: Stephanie Beavers M.D. on 03/02/2017 at 12:58 Approved by: Stephanie Beavers M.D. on 03/02/2017 at 12:58 Brief History HPI obtained by on 03/02 Patient is a pleasant 71-year-old obese white male with history of sinus infection chronic bronchitis and "leaky valves" who has been having "breathing problems" over the last few weeks. He lives in [place], [place] and was seen at the Hospital clinic there. Patient had a CT scan of the chest which apparently he does not know the results of. He was visiting the area with his and he began having a hard time breathing and his brought him to [facility] emergency room where he was evaluated by Dr. Eagle Saucedo. Patient had a chest x-ray which showed moderate atypical pneumonia. His EKG showed left anterior fascicular block and right bundle branch block and left ventricular hypertrophy. And also showed a normal rate of 65 and normal sinus rhythm. Patient's white blood cell count was found to be 13.8. Due to patient's diffuse bilateral interstitial infiltrate consistent with pneumonia per the radiologist's interpretation along with leukocytosis, the patient was admitted to the hospitalist service for further evaluation and treatment. Hospital Course Patient is a pleasant 71-year-old obese white male with history of sinus infection chronic bronchitis and "leaky valves" who has been having "breathing problems" over the last few weeks. He lives in [place], [place] and was seen at the Hospital clinic there. Patient had a CT scan of the chest which apparently he does not know the results of. He was visiting the area with his and he began having a hard time breathing and his brought him to [facility] emergency room where he was evaluated by Dr. Eagle Saucedo. Patient had a chest x-ray which showed moderate atypical pneumonia. His EKG showed left anterior fascicular block and right bundle branch block and left ventricular hypertrophy. And also showed a normal rate of 65 and normal sinus rhythm. Patient's white blood cell count was found to be 13.8. Due to patient's diffuse bilateral interstitial infiltrate consistent with pneumonia per the radiologist's interpretation along with leukocytosis, the patient was admitted to the hospitalist service for further evaluation and treatment. acute #Dyspnea, POA, CXR showed bilateral interstitial pulmonary infiltrates with leukocytosis consistent with pneumonia. Patient was empirically treated initially for probable CHF/COPD/PNA. Trial of lasix 40 mg IV for several day done resulted with brisk urine output. However, repeat TTE showed normal EF, no significant valvular dz. Patient seemed euvolemic. Patient was continued on steroid taper which was initiated outpatient, finished slow taper course with 10mg for 3days. Eventually Viral PCR showed rhino/larry virus+. Given initial CXR findings, persistent purulent sputum with dyspnea, leukocytosis, superimposed bacterial pneumonia suspected, patient was treated with Levaquin to finish 14days course, responded well. Home nebs with Spiriva, symbicort, albuterl prn was continued. Symptoms were greatly improved with coordinated effort for aggressive expectoration using Acapella, chest PT. Patient was ambulating w/o dyspnea, deemed safe to d/c home although patient [place] in [place], [facility]. # History of systolic congestive heart failure improved on carvedilol. Patient also states he has a history of "a leaky valve". However, TTE 03/03 showed no systolic dysfunction, valvular dz, presumed diagnosis is stable chronic diastolic heart failure.lasix will be held given LONI, no strong indication, coreg was continued during hospitalization. # Obstructive sleep apnea associated with obesity, briefly held CPAP to enhance sputum production, but patient rather comfortable with CPAP, continued, tolerated well. # LONI in CKD, POA, ATN with aggressive loop diuretics, still above the baseline , patient needs to repeat CMP to trends renal function. Lasix was held upon d/c chronic, stable # History of MRSA colonization, MRSA swab was negative # Gastroesophageal reflux disease, continued PPI # Rheumatoid arthritis and osteoarthritis, # Hyperlipidemia continued home medications Exam Vital Signs (Last) Date Time Temp Pulse Resp B/P Pulse Ox O2 Delivery O2 Flow Rate FiO2 03/07/17 08:20 36.4 66 20 158/78 93 CPAP Exam NAD, comfortably laying down on the bed no JVD, MMM, no LAD RRR, nl s1, s2 no mrg coarse BS throughout, rhonchi, no w,c, improved from yesterday S,ND,NT,normoactive BS+ warm, trace edema, pulses 2/2 Test 03/02/17 11:30 03/02/17 13:51 03/02/17 17:00 03/03/17 06:00 Prothrombin Time 10.1sec (8.1-12.5) Prothromb Time International Ratio 0.95ratio Lactic Acid Level 1.6mmol/L (0.4-2.0) Procalcitonin 0.06ng/mL (0.00-0.08) Hold Joseph Top Tube Received (Received) Urine Color Yellow (YELLOW) Urine Appearance Clear (CLEAR,HAZY) Urine pH 5.0 (5.0-8.0) Urine Specific [place] 1.030 (1.003-1.035) Urine Protein 30mg/dL (NEG,TRACE) Urine Glucose (UA) Negativemg/dL (NEGATIVE) Urine Ketones Negativemg/dL (NEGATIVE) Urine Occult Blood Negative (NEGATIVE) Urine Nitrite Negative (NEGATIVE) Urine Bilirubin Negative (NEGATIVE) Urine Urobilinogen Normalmg/dL (NORMAL) Urine Leukocyte Esterase Negative (NEGATIVE) Urine RBC 0-2/hpf (0-2) Urine WBC 0-5/hpf (0-5) Urine Epithelial Cells None/hpf (NONE-MOD) Urine Crystals None seen (NONE SEEN) Urine Bacteria Few/hpf (NONE-FEW) Urine Hyaline Casts None/lpf (NONE) Urine Granular Casts None seen (NONE SEEN) Urine Waxy Casts None seen (NONE SEEN) Urine Red Blood Cell Casts None seen (NONE SEEN) Urine White Blood Cell Casts None seen (NONE SEEN) Urine Mucus None seen (None Seen) Urine Trichomonas None seen (NONE SEEN) Urine Yeast None (NONE SEEN) Urinalysis Comment None Urine Culture Reflexed Not indicated Hold Urine Received (Received) Troponin T 0.010ug/L (0.0-0.011) Pro-B-Type Natriuretic Peptide 603.4pg/mL (0-376) Thyroid Stimulating Hormone (TSH) 0.622uIU/mL (0.450-4.500) Test 03/07/17 06:20 White Blood Count 10.1th/mm3 (3.8-10.1) Red Blood Count 4.28mil/mm3 (4.40-5.80) Hemoglobin 13.5g/dL (13.8-17.2) Hematocrit 40.5% (41.0-50.0) Mean Corpuscular Volume 94.6fL (81-100) Mean Corpuscular Hemoglobin 31.5pg (27.0-35.0) Mean Corpuscular Hemoglobin Concent 33.3% (32.0-37.0) Red Cell Distribution Width 15.4% (12.3-15.4) Platelet Count 107bil/L (150-400) Neutrophils (%) (Auto) 58.6% (40-74) Lymphocytes (%) (Auto) 29.0% (14-46) Monocytes (%) (Auto) 9.5% (4-12) Eosinophils (%) (Auto) 1.5% (0-5) Basophils (%) (Auto) 0.2% (0-3) Sodium Level 142mEq/L (134-144) Potassium Level 4.5mEq/L (3.5-5.2) Chloride Level 103mEq/L (97-108) Carbon Dioxide Level 24mmol/L (18-29) Blood Urea Nitrogen 49mg/dL (8-27) Creatinine 1.77mg/dL (0.76-1.27) Estimat Glomerular Filtration Rate 40mL/min (>59) Glucose Level 91mg/dL (60-99) Calcium Level 9.7mg/dL (8.5-10.1) Magnesium Level 1.8mg/dL (1.6-2.6) Total Bilirubin 0.5mg/dL (0.0-1.2) Aspartate Amino Transf (AST/SGOT) 21U/L (0-50) Alanine Aminotransferase (ALT/SGPT) 26U/L (0-44) Alkaline Phosphatase 75U/L (25-160) Total Protein 5.4g/dL (6.4-8.4) Albumin 3.5g/dL (3.4-5.0) Microbiology Results Blood cultures and nasal swab for pathogens is pending Discharge Medications Discharge Medications Allopurinol (Allopurinol) 300 Mg Tablet 300 MG PO DAILY (Reported) Atorvastatin Calcium (Atorvastatin Calcium) 40 Mg Tablet 40 MG PO HS (Reported) Budesonide/Formoterol 160-4.5 mcg Inh (Symbicort 160-4.5 mcg Inh) 120 Puff Inhaler 2 PUFFS INHALATION BID (Reported) Carvedilol (Carvedilol) 6.25 Mg Tablet 6.25 MG PO BID (Reported) Colchicine (Colchicine) 0.6 Mg Tablet 0.6 MG PO DAILY (Reported) Doxazosin Mesylate (Doxazosin Mesylate) 4 Mg Tablet 8 MG PO HS (Reported) Levofloxacin (Levaquin) 750 Mg Tablet 750 MG PO DAILY Prescribed by: ADALBERTO ZEE MD Omeprazole (Omeprazole) 20 Mg Capsule.dr 20 MG PO DAILY (Reported) Tiotropium [place] (Spiriva) 18 Mcg Cap.w.dev 1 PUFF INHALATION DAILY (Reported ) Trazodone (Trazodone) 50 Mg Tablet 100 MG PO HS (Reported) As needed Albuterol HFA (Proair HFA) 8.5 Gm Hfa.aer.ad 2 PUFFS INHALATION Q4H PRN PRN For Shortness of Breath (Reported) Baclofen (Baclofen) 10 Mg Tablet 10 MG PO DAILY PRN PRN For Spasm (Reported) Guaifenesin (Guaifenesin ER) 600 Mg Tab.er.12h 600 MG PO DAILY PRN PRN For Congestion (Reported) Nitroglycerin SL (Nitroglycerin SL) 0.4 Mg Tab.subl 0.4 MG SL PRN For Chest Pain (Reported) oxyCODONE (oxyCODONE) 5 Mg Tablet 5 MG PO QID PRN PRN For Pain (Reported) Additional med instructions Please continue levofloxacin as directed Please use all of inhalers as directed, use albuterol inhalers every 2hours as needed if you feel shortness of breath Please hold lasix given your worsened kidney function, labs should be repeated in one week by your pcp. Followup Plan Disposition: home Follow-up plan Please follow up with your primary doctor Ly Morataya at [facility] [place]. Discharge Diet: No restrictions Discharge Activity: No restrictions Patient Instructions You were hospitalized with difficulty of breathing, cough, sputum, found to have virus pneumonia. Your symptoms were better with antibiotics, steroid, frequent nebulizing treatment. Please continue to make an effort to bring up your sputum, keep using nebulizer treatment, continue antibiotics. Follow-up with PCP in: 1 week Time spent 65min Adalberto Zee MD Mar 07, 2017 12:04
[2017-03-07 14:07] VITALS: BP 106/68; PULSE 86; RESP 18; O2SAT 93
== END 2017-03-07 15:20 | disposition home or self-care (01) | DRG 193 ==
LOC: SED 11:17 → MOC 14:38
PROVIDERS: ADMIT Internal Medicine Infectious Disease; ATTEND Internal Medicine Infectious Disease
DX: J18.9 Pneumonia, unspecified organism (principal); N17.0 Acute kidney failure with tubular necrosis; Z68.41 Body mass index [BMI] 40.0-44.9, adult; I50.32 Chronic diastolic (congestive) heart failure; E66.2 Morbid (severe) obesity with alveolar hypoventilation; B97.29 Other coronavirus as the cause of diseases classified elsewhere; B97.89 Other viral agents as the cause of diseases classified elsewhere; Z86.14 Personal history of Methicillin resistant Staphylococcus aureus infection; N18.3 Chronic kidney disease, stage 3 (moderate); K21.9 Gastro-esophageal reflux disease without esophagitis; M06.9 Rheumatoid arthritis, unspecified; E78.5 Hyperlipidemia, unspecified; M19.90 Unspecified osteoarthritis, unspecified site